=== PATIENT | female | born 1940 | race Caucasian/White ===

== ENCOUNTER → 2019-03-25 | Outpatient (CLI) | payer MEDICARE, OTHER ==
--- NOTE | 2019-03-25 13:42 | Diagnostic Imaging Report ---
CLINICAL INDICATION: Patient has been getting bad pains in top left side of her head that travels down to her left eye. Patient has a meningioma on the right side. EXAM: MRI of the brain performed without IV contrast. Sequences include axial DWI, ADC map, axial T2, axial FLAIR, axial T1, axial gradient echo, and sagittal T1. COMPARISON: None. FINDINGS: There is a dural-based lesion along the posterior right frontal lobe parafalcine region which is attached on the vertex of the skull. This lesion measures 2.0 cm x 1.7 cm x 1.4 cm (AP x Trans x CC). This likely represents a meningioma. Otherwise, there is no evidence of acute cerebral infarct, intracranial hemorrhage, or gross mass effect. The brain parenchymal volume appears appropriate for patient's age. There is normal olivo-white matter distinction. There is no significant midline shift or herniation. The [place] vascular structures show no gross abnormality as visualized. The pituitary gland, sella, and suprasellar regions are unremarkable as visualized. There is no evidence of hydrocephalus. The basal cisterns are unremarkable. The skull, extracranial soft tissue, and orbits are unremarkable. There is minimal mucosal thickening involving both maxillary sinuses and ethmoid sinus. Temporal bones show no significant abnormality. IMPRESSION: 1: Age-related brain parenchymal changes with no evidence of acute intracranial process. 2: There is a 2.0 cm dural-based mass along the posterior right frontal parasagittal region. This is suspected to represent a meningioma. Comparison to prior brain imaging for chronicity is suggested. If there is no prior imaging showing this finding, then followup MRI of the brain with and without contrast in three months would be suggested to better evaluate. Dictated by: Dictated on workstation # [id number]
== END ==
LOC: RAD 12:09
PROVIDERS: ATTEND Nurse Practitioner Family
DX: G93.89 Other specified disorders of brain (principal); R51 Headache
CPT/HCPCS: 70551

== ENCOUNTER → 2020-01-06 | Outpatient (CLI) | payer MEDICARE, OTHER ==
--- NOTE | 2020-01-06 15:51 | Diagnostic Imaging Report ---
INDICATION: 79-year-old female, postmenopausal. Screening for osteoporosis. COMPARISON: None. FINDINGS: AP Spine L1-L4: [BMD (g/cm2): 0.939] [T-Score: -2.2] [Z-Score: -0.7] [BMD Previous: NA] [BMD % Change: NA] LT Hip Neck: [BMD (g/cm2): 0.676] [T-Score: -2.6] [Z-Score: -0.7] LT Hip Total: [BMD (g/cm2):.810] [T-Score:-1.6] [Z-Score: 0.2] [BMD Previous: NA] [BMD % Change: NA] RT Hip Neck: [BMD (g/cm2):0.697] [T-Score:-2.4] [Z-Score:-0.5] RT Hip Total: [BMD (g/cm2):0.778] [T-score:-1.8] [Z-Score:-0.1] [BMD Previous:NA] [BMD % Change:NA] *Indicates significant change from prior examination based on 95% confidence level. World Health Organization criteria for BMD interpretation classify patients as Normal (T-score at or above -1.0), Osteopenic (T-score between -1.0 and -2.5) or Osteoporotic (T-score at or below -2.5). LIMITATIONS AND MODIFICATION: None. FRACTURE RISK (FRAX SCORE): The ten year probability of (%): Major Osteoporotic Fracture: [20.6] Hip Fracture: [7.6] IMPRESSION: 1. Osteopenia (Low bone mass). 2. Baseline examination. 3. See below National Osteoporosis Foundation guidelines on when to potentially initiate pharmacologic therapy. Based on the National Osteoporosis Foundation Guidelines, pharmacologic treatment should be initiated in any of the following, unless clinical conditions suggest otherwise: * Any patient with prior fragility fracture of the hip or vertebrae. A spine fracture indicates 5X risk for subsequent spine fracture and 2X risk for subsequent hip fracture. * Osteoporosis (T-score <-2.5). * Postmenopausal women and men age 50 and older with low bone mass/osteopenia (T-score between -1.0 and -2.5) by DXA and 10-year major osteoporotic fracture greater than 20% or a 10-year probability of hip fracture greater than 3%. These fracture risks are supplied above in the FRAX score, if applicable. * Clinician judgement and/or patient preferences may indicate treatment for people with 10-year fracture probabilities above or below these levels. Dictated by: Dictated on workstation # [id number]
== END ==
LOC: RAD 10:37
PROVIDERS: ATTEND Nurse Practitioner Family
DX: Z13.820 Encounter for screening for osteoporosis (principal); M85.89 Other specified disorders of bone density and structure, multiple sites; Z78.0 Asymptomatic menopausal state
CPT/HCPCS: 77080

== ENCOUNTER → 2020-01-12 | Outpatient (CLI) | payer MEDICARE, OTHER ==
[~2020-01-12] VITALS: Ht 167 cm; Wt 79.0 kg
[~2020-01-12] MED LIST: CATHETER FLUSH 10 ML SYR IV PRN
[2020-01-12 09:02] VITALS: BP 186/63
--- NOTE | 2020-01-13 09:05 | Cardiology Stress Test Report ---
Stress Test Report Date of Procedure/Referring: Date of Procedure: Jan 12, 2020 PCP Valentina Montana MD Admitting Physician No,Local Physician Indications: Chest pain Baseline Heart Rate: 78 Baseline Blood Pressure: Blood Pressure Systolic: 186 Blood Pressure Diastolic: 63 Vital Signs Date Time Temp Pulse Resp B/P (MAP) Pulse Ox O2 Delivery O2 Flow Rate FiO2 01/12/20 09:02 78 186/63 (104) 92 Baseline Vital Signs Vital Signs Date Time Temp Pulse Resp B/P (MAP) Pulse Ox O2 Delivery O2 Flow Rate FiO2 01/12/20 09:02 78 186/63 (104) 92 Baseline EKG: Baseline EKG: normal sinus rhythm Summary: After explaining the procedure and details to the patient, she signed the consent and was brought to the stress nuclear laboratory. Patient exercised on standard Favian protocol, EKG, heart rate and blood pressure were monitored continuously, resting and stress doses of radio tracer were injected, imaging was acquired and reviewed in the short axis, horizontal long axis and vertical long axis views Patient was able to exercise for a total of 2:30 minutes on Favian protocol, M ETs 4.6 Maximum heart rate 138 Maximum blood pressure 257/56 Stress EKG, Minimal nondiagnostic changes Recovery EKG, Return to baseline TID: 1.12 SSS: 5 SDS: 5 EF: 78 Conclusion: 1. Poor exercise tolerance for total of 2 minutes and 30 seconds on Favian protocol, 4.6 METs achieving 100 percent of maximum expected heart rate 2. Minimal nondiagnostic EKG changes with exercise returned to baseline during recovery 3. Hypertensive response to exercise with peak blood pressure 257/56 4. Breast attenuation with mild decreased uptake involving the mid to apical anterolateral wall with mild reversibility 5. Normal left ventricular size and contractility, EF 78 percent VALENTINA MONTANA MD Jan 13, 2020 09:05
== END ==
LOC: CARD 07:48
PROVIDERS: ATTEND Internal Medicine Cardiovascular Disease
DX: I10 Essential (primary) hypertension (principal); R07.9 Chest pain, unspecified; R06.00 Dyspnea, unspecified
CPT/HCPCS: 78452; 93017; A9502

== ENCOUNTER → 2020-01-13 | Outpatient (CLI) | payer MEDICARE, OTHER | LOC: CARD 11:43 | PROVIDERS: ATTEND Internal Medicine Cardiovascular Disease | DX: I11.9 Hypertensive heart disease without heart failure (principal); I07.1 Rheumatic tricuspid insufficiency | CPT/HCPCS: 93306 ==

== ENCOUNTER 2020-01-21 07:47 | Day surgery (SDC) | payer MEDICARE, OTHER ==
[2020-01-21] VITALS (11 sets, daily range): BP systolic 134–163; BP diastolic 48–68
[~2020-01-21] VITALS: Ht 167.7 cm; Wt 77.3 kg
[2020-01-21] MEDS ORDERED: NS IV 1000 ML 1,000 ML IV SCH ×3 (07:51→10:28)
--- OUTSIDE RECORDS SUMMARY | 2020-01-21 07:52 | XMS REPORT ---
Author Author Zenaida DERAS Organization [facility] Address [address] [place] [address] Care Team Providers Care Divorce Attorney Name Role Phone CARSON DERAS Unavailable PROBLEMS Type Condition ICD9-CM Code PGZ22-LX Code Onset Dates Condition S tatus SNOMED Code Problem Gastritis and duodenitis K29.90 Aug, Ac tive 713391584 Problem Encounter for well woman exam with routine gynecologic al exam Z01.419 Dec, Active 847998017 Problem Tubular adenoma of colon D12.6 Aug, Ac tive 870739788 Problem Unspecified disorder of muscle, ligament, and fascia M62.9 Active 221341292 Problem Pelvic pain complicating O26.899 04 2014 Active Problem Exudative age-related macula r degeneration, left eye, 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 Active 972617316 Problem Status post laparoscopic cholecystectomy Z90.49 09 Nov, 2010 Active 277111735 Problem Gastroesophageal reflux disease, esophagitis pre sence not specified K21.9 Active 294697956 Problem Diverticulitis of colon K57.32 Sep, Act garfield 302247937 Problem Status post colonoscopy Z98.890 Jan, Act garfield [id number] Problem Essential hypertension I10 Active 42391138 Problem Chronic maxillary sinusitis J32.0 Ac tive 42143028 Problem Chronic maxillary sinusitis J32.0 Ac tive 11077312 ALLERGIES Substance Reaction Event Type Date Status Sulfamethoxazole Unknown Drug Allergy Aug, Active Septra Unknown Drug Allergy Aug, Active ENCOUNTERS Encounter Location Date Diagnosis [address] [place] [address] Jul, Acute cystitis without hemat uria N30.[address] [place] [address] Jul, Acute cystitis without hemat uria N30.00 [facility] [place] [address] [place] [address] Jun, Acute cystitis without hemat uria N30.00 [facility] [place] [address] [place] [address] Jun, Essential hypertension I10 ; Gastroesophageal reflux disease, esophagitis presence not specified K21.9 and Sore throat J02.9 [facility] [place] [address] [place] [address] May, [facility] [place] [address] [place] [address] Apr, Bronchitis J40 and Essential hypertension I10 [facility] [address] [id number] [place] [address] Apr, [facility] [place] [address] [place] [address] Apr, Essential hypertension I10 ; Chronic maxillary sinusitis J32.0 and Encounter for immunization Z23 [facility] [place] [address] [place] [address] Mar, [facility] [place] [address] [place] [address] Mar, [facility] [place] [address] [place] [address] Mar, Nonintractable episodic head ache, unspecified headache type R51 and Essential hypertension I10 [facility] [address] [place] [address] Jan, Left lower quadrant abdomina l pain R10.32 [facility] [place] [address] [place] [address] Dec, Screening mammogram, encount er for Z12.31 [facility] [place] [address] [place] [address] Dec, Essential hypertension I10 [facility] [address] [place] [address] Nov, [facility] [address] [place] [address] Nov, Essential hypertension I10 [facility] [address] [place] [address] Aug, Essential hypertension I10 [facility] [address] [place] [address] Aug, [facility] [address] [facility] [place] [address] Aug, Essential hypertension I10 [facility] [address] [place] [address] Aug, Essential hypertension I10 [facility] [id number] [place] [address] Jun, [facility] [id number] [place] [address] Jun, [facility] [id number] [place] [address] Jun, [facility] [id number] [place] [address] Jun, [facility] [id number] [place] [address] Aug, IMMUNIZATIONS No Known Immunizations SOCIAL HISTORY Never Assessed REASON FOR VISIT F/U one month for BP medicine.Darya HENDERSON PLAN OF CARE Activity Details Follow Up 3 Months with labs Reason: VITAL SIGNS Height 66 in 2018-09-24 Weight 170 lbs 2018-09-24 Temperature 97.2 degrees Fahrenheit 2018-09-24 Heart Rate 67 bpm 2018-09-24 Respiratory Rate 18 2018-09-24 BMI 27.44 kg/m2 2018-09-24 Blood pressure systolic 130 mmHg 2018-09-24 Blood pressure diastolic 72 mmHg 2018-09-24 MEDICATIONS Medication Instructions Dosage Frequency Start Date End Date Duration S tatus Famotidine 20 MG Orally twice daily 1 tablet as needed Active Vitamin C Active Premarin 0.625 MG/GM Vaginal PRN as directed Active Magnesium Oxide 250 MG Orally at bedtime 1 tablet 30 day(s) Active Lisinopril 5 MG Orally Once a day 1 tablet 24h Aug, 30 day(s) Active Vitamin B Complex - Orally daily 1 tab 24h Active Vitamin D3 1000 UNIT Orally Once a day 1 tablet 24h 30 day(s) Active Estrace 0.5 MG Orally 3 times a week with gel 1 tablet 30 day(s) Active Ivites RX Active Cyclobenzaprine HCl 5 MG Orally Three times a day 1 tablet as needed 8h Active RESULTS No Results PROCEDURES Procedure Date Ordered Result Body Site [facility] VISIT ESTABLISHED PATIENT September 24, 2018 INSTRUCTIONS MEDICATIONS ADMINISTERED No Known Medications MEDICAL (GENERAL) HISTORY Type Description Date Medical History hypertension Medical History dyspepsia and gastritis Medical History diverticulitis Surgical History hysterectomy for fibroid Surgical History appendectomy Surgical History shoulder surgery Hospitalization History surgical
--- OUTSIDE RECORDS SUMMARY | 2020-01-21 07:52 | XMS REPORT | Continuity of Care Document ---
Author Organization Unknown Address Unknown Phone Unavailable Allergies Active Description Code Type Severity Reaction Onset Reported/Identified Relationship to Patient Clinical Status Yes Sulfa (Sulfonamide Antibiotics) [id number] 0491 Drug Allergy Mild HIVES 7 Medications There is no data. Problems Date Dx Coded Attending Type Code Diagnosis Diagnosed By 03/27/2019 BRAEDEN [employer] INSTRUCTOR Ot G93.89 OTHER SPECIFIED DISORDERS OF BRAIN 03/27/2019 BRAEDEN, [employer] INSTRUCTOR Ot R51 HEADACHE 04/04/2019 BRAEDEN, [employer] INSTRUCTOR Ot G93.89 OTHER SPECIFIED DISORDERS OF BRAIN 04/04/2019 BRAEDEN, [employer] INSTRUCTOR Ot R51 HEADACHE 01/05/2020 BRAEDEN, [employer] INSTRUCTOR Ot Z78.0 ASYMPTOMATIC MENOPAUSAL STATE 01/06/2020 BRAEDEN, [employer] INSTRUCTOR Ot G93.89 OTHER SPECIFIED DISORDERS OF BRAIN 01/06/2020 BRAEDEN, [employer] INSTRUCTOR Ot R51 HEADACHE 01/06/2020 BRAEDEN, [employer] INSTRUCTOR Ot Z78.0 ASYMPTOMATIC MENOPAUSAL STATE 01/07/2020 BRAEDEN, [employer] INSTRUCTOR Ot Z78.0 ASYMPTOMATIC MENOPAUSAL STATE 01/08/2020 BRAEDEN, [employer] INSTRUCTOR Ot M85.89 OTH DISRD OF BONE DENSITY AND STRUCTURE, 01/08/2020 BRAEDEN, [employer] INSTRUCTOR Ot Z13.82 0 ENCOUNTER FOR SCREENING FOR OSTEOPOROSIS 01/08/2020 BRAEDEN, [employer] INSTRUCTOR Ot Z78.0 ASYMPTOMATIC MENOPAUSAL STATE 01/14/2020 VALENTINA YANCEY MD Ot I10 ESSENTIAL (PRIMARY) HYPERTENSION 01/14/2020 VALENTINA YANCEY MD Ot R06. 00 DYSPNEA, UNSPECIFIED 01/14/2020 VALENTINA YANCEY MD Ot R07. 9 CHEST PAIN, UNSPECIFIED 01/14/2020 VALENTINA YANCEY MD Ot I07. 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 Results Test Result Range CMP - 09/03/18 13:30 GLUCOSE 106 mg/dL 65-99 UREA NITROGEN (BUN) 20 mg/dL 7-25 CREATININE 1.13 mg/dL 0.60-0.93 eGFR NON-AFR. TURKISH 46 mL/min/1.73m2 > OR = 60 eGFR 54 mL/min/1.73m2 > OR = 60 BUN/CREATININE RATIO 18 (calc) 6-22 SODIUM 150 mmol/L 135-146 POTASSIUM 4.5 mmol/L 3.5-5.3 CHLORIDE 110 mmol/L 98-110 CARBON DIOXIDE 29 mmol/L 20-32 CALCIUM 9.9 mg/dL 8.6-10.4 PROTEIN, TOTAL 7.1 g/dL 6.1-8.1 ALBUMIN 4.7 g/dL 3.6-5.1 GLOBULIN 2.4 g/dL (calc) 1.9-3.7 ALBUMIN/GLOBULIN RATIO 2.0 (calc) 1.0-2. 5 BILIRUBIN, TOTAL 0.3 mg/dL 0.2-1.2 ALKALINE PHOSPHATASE 96 U/L 33-130 AST 17 U/L 10-35 ALT 11 U/L 6- LIPID PANEL - 12/18/18 09:12 CHOLESTEROL, TOTAL 212 mg/dL <200 HDL CHOLESTEROL 59 mg/dL >50 TRIGLYCERIDES 59 mg/dL <150 LDL-CHOLESTEROL 138 mg/dL (calc) NRG CHOL/HDLC RATIO 3.6 (calc) <5.0 NON HDL CHOLESTEROL 153 mg/dL (calc) <13 0 CMP - 12/18/18 09:12 GLUCOSE 93 mg/dL 65-99 UREA NITROGEN (BUN) 17 mg/dL 7-25 CREATININE 0.89 mg/dL 0.60-0.93 eGFR NON-AFR. TURK[place] 62 mL/min/1.73m2 > OR = 60 eGFR 71 mL/min/1.73m2 > OR = 60 BUN/CREATININE RATIO NOT APPLICABLE (calc) 6-22 SODIUM 142 mmol/L 135-146 POTASSIUM 4.6 mmol/L 3.5-5.3 CHLORIDE 107 mmol/L 98-110 CARBON DIOXIDE 29 mmol/L 20-32 CALCIUM 9.1 mg/dL 8.6-10.4 PROTEIN, TOTAL 6.2 g/dL 6.1-8.1 ALBUMIN 3.7 g/dL 3.6-5.1 GLOBULIN 2.5 g/dL (calc) 1.9-3.7 ALBUMIN/GLOBULIN RATIO 1.5 (calc) 1.0-2. 5 BILIRUBIN, TOTAL 0.3 mg/dL 0.2-1.2 ALKALINE PHOSPHATASE 85 U/L 33-130 AST 15 U/L 10-35 ALT 12 U/L 6-29 CBC - 12/18/18 09:12 WHITE BLOOD CELL COUNT 6.6 Thousand/uL 3 .8-10.8 RED BLOOD CELL COUNT 3.90 Million/uL 3.8 0-5.10 HEMOGLOBIN 11.7 g/dL 11.7-15.5 HEMATOCRIT 36.4 % 35.0-45.0 MCV 93.3 fL 80.0-100.0 MCH 30.0 pg 27.0-33.0 MCHC 32.1 g/dL 32.0-36.0 RDW 12.8 % 11.0-15.0 PLATELET COUNT 263 Thousand/uL 140-400 MPV 10.7 fL 7.5-12.5 ABSOLUTE NEUTROPHILS 3927 cells/uL 1500- 7800 ABSOLUTE LYMPHOCYTES 1848 cells/uL 850-3 900 ABSOLUTE MONOCYTES 561 cells/uL 200-950 ABSOLUTE EOSINOPHILS 191 cells/uL 15-500 ABSOLUTE BASOPHILS 73 cells/uL 0-200 NEUTROPHILS 59.5 % NRG LYMPHOCYTES 28.0 % NRG MONOCYTES 8.5 % NRG EOSINOPHILS 2.9 % NRG BASOPHILS 1.1 % NRG CULTURE, URINE - 06/30/19 18:08 CULTURE, URINE, ROUTINE SEE NOTE [facility] LIPID PANEL - 11/19/19 09:14 CHOLESTEROL, TOTAL 209 mg/dL <200 HDL CHOLESTEROL 55 mg/dL > OR = 50 TRIGLYCERIDES 73 mg/dL <150 LDL-CHOLESTEROL 137 mg/dL (calc) NRG CHOL/HDLC RATIO 3.8 (calc) <5.0 NON HDL CHOLESTEROL 154 mg/dL (calc) <13 0 CMP - 11/19/19 09:14 GLUCOSE 95 mg/dL 65-99 UREA NITROGEN (BUN) 15 mg/dL 7-25 CREATININE 1.09 mg/dL 0.60-0.88 eGFR NON-AFR. TURKISH 48 mL/min/1.73m2 > OR = 60 eGFR 56 mL/min/1.73m2 > OR = 60 BUN/CREATININE RATIO 14 (calc) 6-22 SODIUM 140 mmol/L 135-146 POTASSIUM 4.5 mmol/L 3.5-5.3 CHLORIDE 107 mmol/L 98-110 CARBON DIOXIDE 30 mmol/L 20-32 CALCIUM 9.4 mg/dL 8.6-10.4 PROTEIN, TOTAL 6.3 g/dL 6.1-8.1 ALBUMIN 4.0 g/dL 3.6-5.1 GLOBULIN 2.3 g/dL (calc) 1.9-3.7 ALBUMIN/GLOBULIN RATIO 1.7 (calc) 1.0-2. 5 BILIRUBIN, TOTAL 0.4 mg/dL 0.2-1.2 ALKALINE PHOSPHATASE 93 U/L 37-153 AST 17 U/L 10-35 ALT 14 U/L 6-29 CBC - 11/19/19 09:14 WHITE BLOOD CELL COUNT 6.3 Thousand/uL 3 .8-10.8 RED BLOOD CELL COUNT 3.94 Million/uL 3.8 0-5.10 HEMOGLOBIN 11.8 g/dL 11.7-15.5 HEMATOCRIT 37.3 % 35.0-45.0 MCV 94.7 fL 80.0-100.0 MCH 29.9 pg 27.0-33.0 MCHC 31.6 g/dL 32.0-36.0 RDW 13.6 % 11.0-15.0 PLATELET COUNT 289 Thousand/uL 140-400 MPV 11.0 fL 7.5-12.5 ABSOLUTE NEUTROPHILS 3440 cells/uL 1500- 7800 ABSOLUTE LYMPHOCYTES 2003 cells/uL 850-3 900 ABSOLUTE MONOCYTES 561 cells/uL 200-950 ABSOLUTE EOSINOPHILS 208 cells/uL 15-500 ABSOLUTE BASOPHILS 88 cells/uL 0-200 NEUTROPHILS 54.6 % NRG LYMPHOCYTES 31.8 % NRG MONOCYTES 8.9 % NRG EOSINOPHILS 3.3 % NRG BASOPHILS 1.4 % NRG Encounters ACCT No. Visit Date/Time Discharge Status Pt. Type Provider Facility Loc./Unit Complaint [id number] 01/14/2020 14:20:00 01/14/2020 23:59: 59 [facility] [id number] 11/19/2019 09:00:00 Document Registration [id number] 06/30/2019 17:20:00 Document Registration [id number] 12/18/2018 09:15:00 Document Registration [id number] 09/03/2018 13:30:00 Document Registration [id number] 01/13/2020 11:43:00 23:59:59 CLS Outpatient NAYE MCGINNIS, VALENTINA Barakat [facility] CARD CHEST PAIN,DYSPNEA,HTN [id number] 01/12/2020 07:48:00 23:59:59 CLS Outpatient NAYE MCGINNIS, VALENTINA Barakat [facility] CARD CHEST PAIN,DYSPNEA,HTN [id number] 01/06/2020 10:37:00 23:59:59 CLS Outpatient FRANKIE DERAS [facility] RAD ASYMPTOMATIC MENOPAUSE [id number] 03/25/2019 12:09:00 23:59:59 CLS Outpatient FRANKIE DERAS [facility] RAD NONINTRACTIBLE EPISODIC HEADACHE [id number] 01/21/2020 10:00:00 P PLACIDO YANCEY MD, VALENTINA Barakat [facility] CATH ABNORMAL STRESS TEST,CP,HTN
--- OUTSIDE RECORDS SUMMARY | 2020-01-21 07:52 | XMS REPORT ---
Author Author Zenaida LAGUNA [facility] Address [address] [place] [address] Care Team Providers Care Industrial Insulator Name Role Phone GALO LAGUNA Unavailable PROBLEMS Type Condition ICD9-CM Code OID48-XQ Code Onset Dates Condition S tatus SNOMED Code Problem Constipation K59.00 Sep, 0 1476 0008 Problem Suprapubic pain 789.09 Sep, 0 1 08320569 Problem Tubular adenoma of colon 211.3 Aug, 0 832425854 Problem Status post colonoscopy Z98.890 Jan, 0 [id number] Problem Status post laparoscopic cholecystectomy V45.89 Nov, [address] scan, colon R93.3 Apr, [address] scan, colon 793.4 Apr, 0 438007547 Problem Pelvic pain complicating 646.80 04 2014 0 Problem Unspecified disorder of muscle, ligament, and fascia M62.9 0 040816413 Problem Encounter for well woman exam with routine gynecologic al exam V72.31 Dec, 0 291562875 Problem Pelvic pain complicating O26.899 04 2014 0 Problem Status post colonoscopy V45.89 Jan, 0 938310114150 Problem Gastritis and duodenitis 535.50 Aug, 0 746554949 Problem Diverticulosis of colon (without mention of hemorrhage) K57.30 0 410861495 Problem Encounter for well woman exam with routine gynecologic al exam Z01.419 Dec, 0 689781567 Problem Gastritis and duodenitis K29.90 Aug, 0 062040639 Problem Suprapubic pain R10.2 Sep, 0 1 14365057 Problem Unspecified disorder of muscle, ligament, and fascia 728.9 0 961976575 Problem Essential hypertension I10 Active 24198256 Problem Constipation 564.00 Sep, 0 1476 0008 Problem Diverticulosis of colon (without mention of hemorrhage) 562. 10 0 078650459 Problem Diverticulitis of colon K57.32 Sep, 0 566047889 Problem Status post laparoscopic cholecystectomy Z90.49 09 Nov, 2010 0 725463272 Problem Diverticulitis of colon 562.11 26 Sep, 2010 0 144667794 Problem Tubular adenoma of colon D12.6 Aug, 0 727156153 ALLERGIES Substance Reaction Event Type Date Status Sulfamethoxazole Unknown Drug Allergy Aug, Active Septra Unknown Drug Allergy Aug, Active ENCOUNTERS Encounter Location Date Diagnosis [address] [address] Aug, Essential hypertension I10 [address] [address] Aug, [address] [address] Aug, Essential hypertension I10 [address] [address] Aug, Essential hypertension I10 [facility] [address] [facility] [id number] [address] [place] [address] Jun, [facility] [address] [facility] [id number] [address] [place] [address] Jun, [facility] [address] [facility] [id number] [address] [place] [address] Jun, [facility] [address] [facility] [id number] [address] [place] [address] Jun, [facility] [address] [facility] [id number] [address] [place] [address] Aug, IMMUNIZATIONS No Known Immunizations SOCIAL HISTORY Never Assessed REASON FOR VISIT medical history update PLAN OF CARE VITAL SIGNS MEDICATIONS Medication Instructions Dosage Frequency Start Date End Date Duration S tatus Magnesium Oxide 250 MG Orally at bedtime 1 tablet 30 day(s) Active Vitamin D3 1000 UNIT Orally Once a day 1 tablet 24h 30 day(s) Active Ivites RX Active Vitamin C Active Famotidine 20 MG Orally twice daily 1 tablet as needed Unknown Vitamin B Complex - Orally daily 1 tab 24h Active Cyclobenzaprine HCl 5 MG Orally Three times a day 1 tablet as needed 8h Active Lisinopril 5 Orally Once a day 1 tablet 24h 30 Unknown Lisinopril 5 MG Orally Once a day 1 tablet 24h 26 Aug, 2018 30 day(s) Unknown Estrace 0.5 MG Orally 3 times a week with gel 1 tablet 30 day(s) Active Hydrochlorothiazide 12.5 MG Orally Once a day 1 capsule in the morning 24h 30 day(s) Active Premarin 0.625 MG/GM Vaginal PRN as directed Active RESULTS No Results PROCEDURES No Known procedures INSTRUCTIONS MEDICATIONS ADMINISTERED No Known Medications MEDICAL (GENERAL) HISTORY Type Description Date Medical History hypertension Medical History dyspepsia and gastritis Surgical History hysterectomy for fibroid Surgical History appendectomy Surgical History shoulder surgery Hospitalization History surgical
[2020-01-21] MEDS ORDERED: NS IV 1000 ML 1,000 ML ONE (07:53)
[2020-01-21] MEDS ORDERED: LIDOCAINE 1% INJ 20 ML 20 ML VIAL ONE (07:53)
[2020-01-21] MEDS ORDERED: HEParin (CATH LAB) 2,000 ML IV ONE (07:53)
[2020-01-21 08:19] LABS: HEMOGLOBIN 12.2 G/DL (11.5-16.0); MEAN PLATELET VOLUME 10.6 FL (7.4-10.4); RED CELL DISTRIBUTION WIDTH 13.2 % (10.0-14.5); WHITE BLOOD COUNT 6.8 10^3/uL (4.3-11.0)
--- NOTE | 2020-01-21 08:28 | Diagnostic Imaging Report ---
INDICATION: Coronary artery disease, chest pain and hypertension. Single AP view of the chest is obtained. Comparison is made study of 09/21/2006. FINDINGS: Heart size and pulmonary vascularity are within normal limits, and the lungs are clear, bilaterally. Surgical anchors are seen in the proximal humeri, bilaterally. IMPRESSION: Unremarkable chest. Dictated by: Dictated on workstation # [id number]
[2020-01-21 08:35] LABS: PROTHROMBIN TIME PATIENT 13.4 SEC (12.2-14.7)
[2020-01-21 08:36] LABS: BILIRUBIN,TOTAL 0.3 MG/DL (0.1-1.0); CALCIUM 9.5 MG/DL (8.5-10.1); CREATININE SERUM 1.14 MG/DL (0.60-1.30); POTASSIUM 4.5 MMOL/L (3.6-5.0)
[2020-01-21] MEDS ORDERED: MAGN250T13 PO (08:38)
[2020-01-21] MEDS ORDERED: FAMO-119 PO (08:38)
[2020-01-21] MEDS ORDERED: VIT1CAPS14 PO (08:38)
[2020-01-21] MEDS ORDERED: AMIT10TA6 PO (08:38)
[2020-01-21] MEDS ORDERED: LISI10TA2 PO (08:38)
[2020-01-21] MEDS ORDERED: NF-VITD400 PO (08:38)
[2020-01-21] MEDS ORDERED: fentaNYL INJECTION 100 MCG/2 ML AMP ONE (09:33)
[2020-01-21] MEDS ORDERED: MIDAZOLAM 5 MG/5 ML (VERSED) VIAL ONE (09:33)
--- NOTE | 2020-01-21 09:43 | Cardiac Procedure Note-CS/ASA ---
Pre-Procedure Note Pre-Op Procedure Note H&P Reviewed The H&P was reviewed, patient examined and no changes noted. Date H&P Reviewed: Jan 21, 2020 Time H&P Reviewed: 09:43 Conscious Sedation Pre-Proced Time 09:43 ASA Score 3 For ASA 3 and 4: Consider anesthesia and medical clearance. Also, for patients with a history of failed moderate sedation consider anesthesia. Airway Lungs Heart ASA score ASA 1: a normal healthy patient ASA 2: a patient with a mild systemic disease (mid diabetes, controlled hypertension, obesity x ASA 3: a patient with a severe systemic disease that limits activity (angina, COPD, prior Myocardial infarction) ASA 4: a patient with an incapacitating disease that is a constant threat to life (CHF, renal failure) ASA 5: a moribund patient not expected to survive 24 hrs. (ruptured aneurysm) ASA 6: a declared brain- patient whose organs are being harvested. For emergent operations, add the letter E after the classification Mallampati Classification Grade 3 Sedation Plan Analgesia, Amnesia, Plan communicated to team members, Discussed options with patient/fam, Discussed risks with patient/fam The patient is an appropriate candidate to undergo the planned procedure, sedation, and anesthesia. The patient immediately re-assessed prior to indication. VALENTINA YANCEY MD Jan 21, 2020 9:43 am
[2020-01-21] MEDS ORDERED: meTOprolol 5 MG/5 ML (LOPRESSOR) VIAL ONE (10:17)
[2020-01-21] MEDS ORDERED: PATIENT MAY USE OWN MEDS, ALL PO SCH (10:30)
--- NOTE | 2020-01-21 10:32 | Discharge Inst-Post CATH ---
Discharge Inst-CATH/EP Problems Reviewed?: Yes Post Cardiac Cath/EP D/C Inst Follow Up/Plan Appointment with Dr. YANCEY's office in 4 weeks <b>CARDIAC CATH/EP PROCEDURE DISCHARGE INSTRUCTIONS</b> ACTIVITY * Go Home directly and rest. * Limit activity of the leg (or wrist if it was used) for 7 days including aerobics, swimming, jogging, bicycling, etc. * Restrict stair-climbing for 7 days if possible, if not, climb up with your non-cath leg, then bring together on the same step. * Avoid lifting, pushing, pulling or excessive movement of the affected extremity for 7 days. * Customary sexual activity may be resumed after 2 days-use caution not to use a position that strains or causes pain to the affected extremity. * No driving for 24 hours. * NO SMOKING. * Avoid straining for bowel movements for 7 days. * Gentle walking on level ground is allowed. * Returning to work will depend on the type of procedure and the results. Your doctor will discuss this with you. CALL YOUR DOCTOR FOR ANY OF THE FOLLOWING: *If bleeding from the puncture site occurs- Apply gentle pressure to site with clean cloth and call your doctor or EMS. * If a knot or lump forms under the skin, increases in size, or causes pain. * If bruising appears to be worsening or moving further down your leg instead of disappearing. * Temperature above 101 F. CARE OF YOUR GROIN INCISION; * Bruising or purple discoloration of the skin near the puncture site is common. * You may shower only, no bathtub bathing for 5 days. Be careful to avoid slipping as your leg may feel stiff. * If a closure device was used on your femoral artery, please see the attached guide regarding care of the device and your leg. * Leave dressing on FOR 24 hours. CARE OF YOUR WRIST INCISION; * Bruising or purple discoloration of the skin near the puncture site is common. * You may shower. * DO NOT submerge wrist. * Leave dressing on FOR 24 hours. VALENTINA YANCEY MD Jan 21, 2020 10:32
--- NOTE | 2020-01-21 10:37 | Cardiac Cath Report ---
Cardiac Cath Report Physician (s)/Hide House Supervisor (s) Physician VALENTINA YANCEY MD Pre-Procedure Diagnosis Pre-Procedure Diagnosis: coronary artery disease Post-Procedure Note Procedure Start Date: Jan 21, 2020 Name of Procedure: Left heart catheterization Selective bilateral renal angiogram Findings/Procedure Note PROCEDURE NOTE: 79 years old lady with history of hypertension, chronic renal insufficiency, had an abnormal stress test scheduled for cardiac catheterization possible PTCA. During the procedure I used very small amount of contrast, due to the severe hypertension and renal insufficiency I decided to do selective bilateral renal angiogram and used only 2 mL of contrast for each kidney arteries. After explaining the procedure to the patient, all pros and cons were explained, all questions were answered. The patient signed the consent and then she was placed on the cardiac catheterization laboratory. Groin was prepped SL fashion local anesthesia was used. Sheath placed in the artery. Briana right and left catheter were used to access the coronary system. JR catheter was used for selective right renal angiogram then turned and did selective left renal angiogram with total of 4 additional milliliter of contrast for both renal arteries, the catheter was prolapsed into the left ventricular cavity, pressure was measured no left ventriculogram was done. At the end of the procedure the sheath was removed. Closure device was used FINDINGS: Hemodynamics LV 168/21, end-diastolic pressure of 21 Aorta 159/51 mean of 86 ANATOMY: Left Main is free of obstructive disease Left Anterior Descending has mild disease at the proximal portion up to 30-40 percent stenosis, nonobstructive disease Left Circumflex is small with mild disease nonobstructive disease Right Coronory Artery has no significant obstructive disease LV Gram was not done, left ventricular end-diastolic pressure was measured Selective right renal angiogram done using 1.7 mL of contrast showing no significant obstructive disease Selective left renal angiogram was done using 1.7 mL of contrast, showing no significant obstructive disease CONCLUSION: 1. Mild coronary artery disease nonobstructive disease 2. Normal bilateral renal arteries 3. Mildly elevated left ventricular end-diastolic pressure DISCUSSION AND RECOMMENDATION: Medical therapy is recommended no intervention is needed Anesthesia Type: Conscious Sedation Estimated blood loss (mL): 20 ml Contrast Amount: 18 ml Total Radiation Dose: 218 mGy Post-Procedure Diagnosis Post-operative diagnosis: Chest pain Coronary artery disease Hypertension VALENTINA YANCEY MD Jan 21, 2020 10:37 am
== END 2020-01-21 15:15 | disposition home or self-care (01) ==
LOC: CATH 07:47 → SDC 10:40 → CATH 15:15
PROVIDERS: ATTEND Internal Medicine Cardiovascular Disease
DX: I25.10 Atherosclerotic heart disease of native coronary artery without angina pectoris (principal); I10 Essential (primary) hypertension; K57.92 Diverticulitis of intestine, part unspecified, without perforation or abscess without bleeding; E78.5 Hyperlipidemia, unspecified; R94.39 Abnormal result of other cardiovascular function study; Z79.899 Other long term (current) drug therapy; Z88.2 Allergy status to sulfonamides; Z88.8 Allergy status to other drugs, medicaments and biological substances; Z90.710 Acquired absence of both cervix and uterus; Z83.511 Family history of glaucoma
CPT/HCPCS: 36252; 71045; 80053; 80061; 85027; 85610; 85730; 87081; 93458; C1760; C1894; 36415

== ENCOUNTER 2020-07-05 05:53 | Outpatient (RCR) | payer MEDICARE, OTHER ==
[~2020-07-05] VITALS: Ht 167.6 cm; Wt 77.1 kg
[~2020-07-05 05:53] MED LIST changes: +AMIT10TA6 PO; -CATHETER FLUSH 10 ML SYR IV PRN; +FAMO-119 PO; +LISI10TA2 PO; +MAGN250T13 PO; +NF-VITD400 PO; +VIT1CAPS14 PO
[2020-07-05] MEDS ORDERED: OMEP-401 PO (11:33)
[2020-07-05] MEDS ORDERED: MELA1TAB15 PO (11:33)
== END 2020-07-05 15:49 | disposition home or self-care (01) ==
LOC: PREOP 05:53
PROVIDERS: ATTEND Surgery
DX: Z01.812 Encounter for preprocedural laboratory examination (principal); K29.50 Unspecified chronic gastritis without bleeding; Z86.010 Personal history of colon polyps

== ENCOUNTER → 2020-07-07 | Outpatient (CLI) | payer MEDICARE, OTHER ==
[~2020-07-07] MED LIST changes: +MELA1TAB15 PO; +OMEP-401 PO
== END ==
LOC: LAB FS 10:30
PROVIDERS: ATTEND Surgery
DX: Z01.812 Encounter for preprocedural laboratory examination (principal); K29.50 Unspecified chronic gastritis without bleeding; Z86.010 Personal history of colon polyps; Z20.822 Contact with and (suspected) exposure to COVID-19
CPT/HCPCS: 87635

== ENCOUNTER 2020-07-12 08:24 | Day surgery (SDC) | payer MEDICARE, OTHER ==
[~2020-07-12] VITALS: Ht 168 cm; Wt 77.0 kg
[2020-07-12] MEDS ORDERED: LACTATED RINGERS 1,000 ML IV ONE (08:30)
--- NOTE | 2020-07-12 08:37 | Progress Note-Pre Operative ---
Pre-Operative Progress Note H&P Reviewed The H&P was reviewed, patient examined and no changes noted. Time Seen by Provider: 08:31 Date H&P Reviewed: Jul 12, 2020 Time H&P Reviewed: 08:32 Pre-Operative Diagnosis: Chronic Gastritis, Hx of colon polyps Addendum Physician Addendum Addendum Pt has hx colon polyps and needs a diagnostic colonoscopy. We discussed risks and complications not limited to pain, bleeding, infection and even intestinal perforation. All questions answered to her satisfaction. The benefit of doing the procedure is to make sure she has no polyps that could turn into cancer. Progress 08:34 DAYNA RACHEL DO Jul 12, 2020 08:37
[2020-07-12] MEDS ORDERED: HURRICAINE EXT TUBE (BENZOCAINE) XX PRN (08:45)
[2020-07-12] MEDS ORDERED: LACTATED RINGERS 1,000 ML IV PRN (08:45)
[2020-07-12] MEDS ORDERED: HURRICAINE EXT TUBE (BENZOCAINE) ONE (08:47)
[2020-07-12] MEDS ORDERED: PROPOFOL INJECTION 50 ML IV ONE (08:49)
[2020-07-12 08:53] VITALS: BP 149/67
[2020-07-12 09:40] VITALS: BP 108/49
[2020-07-12 09:45] VITALS: BP 126/53
[2020-07-12 09:50] VITALS: BP 130/56
--- NOTE | 2020-07-12 10:02 | Progress Note-Post Operative ---
Post-Operative Progess Note Surgeon (s)/Balance Staff Staker (s) Surgeon DAYNA RACHEL DO Balance Staff Staker: JOSE MANUEL AguirreII Pre-Operative Diagnosis Chronic Gastritis, Hx of colon polyps Post-Operative Diagnosis Gastritis Gastric Polyp cecal polyp diverticula int hemorrhoids Procedure & Operative Findings Date of Procedure 07/12/20 Procedure Performed/Findings EGD with bx EGD with polypectomy by hot bx Colon with hot bx Anesthesia Type IV sedation by EMBEDDED NURSE Estimated Blood Loss Estimated blood loss (mL): scant Specimens/Packing Specimens Removed antral bx Gastric polyp x 2 GE jxn bx cecal polyp DAYNA RACHEL DO Jul 12, 2020 10:02
--- NOTE | 2020-07-12 10:03 | Endoscopy Discharge Instruct ---
Endo Procedure/Findings Findings 1.: Gastritis 2.: Other Findings (Gastric Polyps) 3.: Polyp 4.: Diverticulosis, Internal Hemorrhoids Discharge Instructions - Activity: You might feel a little sleepy until tomorrow. This is due to the medicine you received to relax you. Until tomorrow, you should: NOT drive a car, operate machinery or power tools. NOT drink any alcoholic beverages. NOT make any important decisions or sign importortant papers. Do not return to work until tomorrow, unless otherwise instructed. Resume previous activities tomorrow. Diet: Start by taking liquids. If you tolerate liquids, advance to solid food. 1.: EGD in 1 year 2.: Colonscopy in 5 years Notify Physician - If you experience excessive bleeding, unusual abdominal pain, fever, or chest pain, contact your doctor immediately. DAYNA RACHEL DO Jul 12, 2020 10:03
[2020-07-12 10:30] VITALS: BP 152/50
[2020-07-12 10:40] VITALS: BP 152/50
--- NOTE | 2020-07-12 13:01 | Anesthesia-General Post-Op ---
MAC Patient Condition Mental Status/LOC: Same as Preop Cardiovascular: Satisfactory Nausea/Vomiting: Absent Respiratory: Satisfactory Pain: Controlled Complications: Absent Post Op Complications Complications None Follow Up Care/Instructions Patient Instructions None needed. Anesthesiology Discharge Order Discharge Order Patient is doing well, no complaints, stable vital signs, no apparent adverse anesthesia problems. No complications reported per nursing. ROSARIO OROZCO CRNA Jul 12, 2020 13:01
--- NOTE | 2020-07-12 21:57 | OPERATIVE REPORT ---
DATE OF SERVICE: PREOPERATIVE DIAGNOSES: Gastritis, history of polyps. POSTOPERATIVE DIAGNOSES: 1. Gastritis. 2. Gastric polyp. 3. Colon polyp, diverticula, internal hemorrhoids. PROCEDURES: 1. EGD with biopsy. 2. EGD with polypectomy by hot biopsy. 3. Colonoscopy with hot biopsy. SURGEON: Lam Sandhu DO FIRST ASSISTANTS: INDIA Aguirre. SPECIMEN: Antrum biopsy, gastric polyp x2 and a biopsy from GE junction as well as a cecal polyp biopsy. BLOOD LOSS: Scant. FLUIDS: Per anesthesia. POSTOPERATIVE CONDITION: Stable. INDICATION FOR PROCEDURE: The patient is an 80-year-old female, who has been having some gastritis with history of polyps and needed a workup. FINDINGS: The patient had some mild gastritis, but she had a large amount of gastric polyps. Some biopsy done. She also had a small polyp in the cecum, large amount of diverticula and some internal hemorrhoids. PROCEDURE NOTE: After informed consent was obtained, the patient was brought to the endoscopy suite, placed in bed in left lateral decubitus position. She was administered IV sedation by the LUBRICATION SERVICER who then monitored her vitals the entire time, heart rate, blood pressure and pulse ox and the scope was inserted, started with the EGD, placing scope down the mouth through the esophagus into the stomach. On the way down, noted some mild changes of the GE junction, pushed into the stomach and then duodenum. Duodenum looked fine, took a picture. Pulled back, saw some mild gastritis in the antrum, did a biopsy here and then retroflexed the scope and saw a very large amount of gastric polyps, took pictures. I elected to remove two of these with hot biopsy. Did hot biopsy to remove two and then had looked did not see a hiatal hernia. At this point, then pulled the scope into the GE junction, did a biopsy, then pushed the scope back in the stomach, suctioned all the air out and then pulled the scope up the esophagus and out the mouth. Switched camera, switched gloves, went down below, started the colonoscopy. Pushed all the way into about [address] in, noted diverticula, took a picture, it will get all way to the cecum, took a picture of appendiceal orifice and then just outside the cecal cap noted a polyp, did hot biopsy of this as well and then slowly withdrew the scope insufflating to look circumferentially winters looking at the cecum, up the ascending colon to the hepatic flexure, then down the transverse colon, splenic flexure, into the descending colon, then down into the sigmoid and finally into the rectum, retroflexed in the rectal vault, saw some minimal internal hemorrhoids. The scope was then removed. The patient tolerated the procedure, recovered in endoscopy suite. Job ID: [id number] DocumentID: [id number] Dictated Date: 07/12/2020 15:53:21 Business Taxes Specialist Date: 07/12/2020 21:56:34 Dictated By: DO ROSEY BOWLES
== END 2020-07-12 10:40 | disposition home or self-care (01) ==
LOC: ENDO 08:24
PROVIDERS: ATTEND Surgery
DX: D12.0 Benign neoplasm of cecum (principal); K31.7 Polyp of stomach and duodenum; K64.8 Other hemorrhoids; K57.30 Diverticulosis of large intestine without perforation or abscess without bleeding; K29.50 Unspecified chronic gastritis without bleeding; K21.00 Gastro-esophageal reflux disease with esophagitis, without bleeding; I10 Essential (primary) hypertension; K44.9 Diaphragmatic hernia without obstruction or gangrene; Z79.899 Other long term (current) drug therapy; Z88.2 Allergy status to sulfonamides; Z86.010 Personal history of colon polyps; Z90.710 Acquired absence of both cervix and uterus
CPT/HCPCS: 88305

== ENCOUNTER → 2022-08-16 | Outpatient (CLI) | payer MEDICARE, OTHER ==
[~2022-08-16] MED LIST changes: -AMIT10TA6 PO; +AMT10T PO; +CHOL20003 PO; -LISI10TA2 PO; +LISI10TA25 PO; +MELA5TAB14 PO; +PANT40TA2 PO; +PROM25TA14 PO
--- NOTE | 2022-08-16 15:12 | Diagnostic Imaging Report ---
EXAMINATION: Left knee radiographs, 3 views. COMPARISON: None. HISTORY: 82-year-old female, left knee pain. FINDINGS: There is chondrocalcinosis. There is severe patellofemoral compartment joint space loss with [id number] articulation and bone remodeling. There is no large knee joint effusion. There is no identified acute fracture. There are medial and lateral compartment osteophytes without prominent joint space loss in these compartments. IMPRESSION: 1. 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 2. Chondrocalcinosis which has multiple associations including calcium pyrophosphate dihydrate deposition disease and advanced age. The arthritis distribution and overall appearance can be seen with CPPD. Dictated by: Dictated on workstation # [id number]
== END ==
LOC: RAD FS 13:42
PROVIDERS: ATTEND Nurse Practitioner
DX: M17.12 Unilateral primary osteoarthritis, left knee (principal); M11.262 Other chondrocalcinosis, left knee; M25.561 Pain in right knee
CPT/HCPCS: 73562